=== PATIENT | female | born 1995 | race Caucasian/White ===

== ENCOUNTER 2016-12-28 07:59 | Emergency (ER) | payer OTHER ==
[2016-12-28] MEDS ORDERED: cefTRIAXone 250 MG VIAL IM STA (12:46)
[2016-12-28] MEDS ORDERED: cefTRIAXone 250 MG VIAL ONE (13:01)
[2016-12-28] MEDS ORDERED: LIDOCAINE-MPF 1% 5 ML VIAL ONE (13:01)
== END 2016-12-28 13:26 | disposition home or self-care (01) ==
DX: T83.32XA Displacement of intrauterine contraceptive device, initial encounter (principal); Y84.8 Other medical procedures as the cause of abnormal reaction of the patient, or of later complication, without mention of misadventure at the time of the procedure

== ENCOUNTER 2017-04-04 20:57 | Emergency (ER) | payer OTHER ==
[2017-04-04 21:11] VITALS: BP 104/72
[2017-04-04] MEDS ORDERED: IBUPROFEN 600 MG TABLET PO STA (22:04)
[2017-04-04] MEDS ORDERED: BACITRACIN OINT TOP STA (22:04)
[2017-04-04] MEDS ORDERED: IBUPROFEN 600 MG TABLET PO ONE (22:11)
[2017-04-04] MEDS ORDERED: BACITRACIN OINT TOP ONE (22:11)
--- NOTE | 2017-04-04 22:57 | ED Physician Documentation ---
PD HPI MAJOR BURN - Stated complaint Stated Complaint: L HAND INJURY - Chief complaint Chief Complaint: Burn - History obtained from History obtained from: Patient, Family - History of Present Illness Timing - onset: How many minutes ago (30) PD HPI MAJOR BURN MECHANISM: Hot liquid Burn(s) location: Right Upper Extremity Pain level max: 8 Pain level now: 6 Symptoms improve with: Rest Worsens with: Movement, Palpation - Additional information Additional information: Enriqueta is a 21 year old female with no significant past medical history who is presenting to the emergency department for a right hand burn. patient states that she was working with melted wax and she knocked it on her right hand. patient denies russell to any other part of her body. Review of Systems Constitutional: denies: Fever, Chills Eyes: denies: Decreased vision Ears: denies: Ear pain, Drainage/discharge GI: denies: Nausea, Vomiting Skin: reports: Rash, Lesions Musculoskeletal: reports: Extremity pain Neurologic: denies: Generalized weakness, Focal weakness, Numbness Immunocompromised: denies: Immunocompromised PD PAST MEDICAL HISTORY - Past Medical History Past Medical History: No - Past Surgical History Past Surgical History: No - Present Medications Home Medications: Ambulatory Orders Medication Instructions Recorded Confirmed No Known Home Medications [No 04/04/17 04/04/17 Known Home Medications] - Allergies Allergies/Adverse Reactions: Allergies Allergy/AdvReac Type Severity Reaction Status Date / Time No Known Drug Allergies Allergy Verified 04/04/17 21:07 - Social History Does the pt smoke?: No Smoking Status: Never smoker Does the pt drink ETOH?: Yes ETOH Use: Beer Does the pt have substance abuse?: No - Immunizations Immunizations are current?: Yes - POLST Patient has POLST: No PD ED PE NORMAL - Vitals Vital signs reviewed: Yes - General General: Alert and oriented X 3, Well developed/nourished - HEENT HEENT: Atraumatic - Neck Neck: Supple, no meningeal sign - Cardiac Cardiac: RRR, No murmur - Respiratory Respiratory: No respiratory distress - Neuro Neuro: Alert and oriented X 3, No motor deficit, No sensory deficit, Normal speech - Psych Psych: Normal mood, Normal affect PD ED PE EXPANDED - Extremities Extremities: Right hand (partial thickness burn to the dorsal portion of 5th through 2nd digits of the right hand, few blisters) PD BURN EXAM RULE OF 9S - TBSA Calculation Estimated TBSA: 0.5 Results - Vitals Vitals: Vital Signs - 24 hr 04/04/17 21:08 Temperature 36.6 C Heart Rate 83 Respiratory 16 Rate Blood Pressure 104/72 O2 Saturation 100 Oxygen O2 Source Room air PD MEDICAL DECISION MAKING - ED course Complexity details: reviewed results, re-evaluated patient, considered differential, d/w patient, d/w family, d/w telecommunications consultant ED course: Patient was seen and examined at bedside. Patient was up to date with tetanus. Patient was treated with motrin for pain. Burn center was contacted and the case was discussed with the burn fellow, Dr. Johnson. The recommended xeroform and bacitracin for the wound. follow up appointment was arranged. Wound was dressed and detailed discharge and return instructions were given to the patient. Patient required no further work up and was stable for discharge with outpatient follow up. Departure - Departure Disposition: 01 Home, Self Care Clinical Impression: Burn of hand Condition: Good Instructions: ED Burn D 2nd Follow-Up: Leonel Fontanez ARNP [Primary Care Provider[facility]Other[facility] Comments: Your symptoms today are being caused by a partial thickness burn. You will need to keep the russell moist with bacitracin. You should change the dressing daily after you shower. You should apply xeroform and bacitracin to the affected areas. You should look up the [facility] and their burn videos. You should do the hand exercises in burn video 306 6 times a day. You can take motrin or tylenol as needed for pain, but you should not apply ice to the wound. [facility] will be calling you to set up a follow up appointment. You should monitor for signs of infection. You may return to the emergency department at any time for new, worsening or uncontrollable symptoms. Forms: Activity restrictions
== END 2017-04-04 23:05 | disposition home or self-care (01) ==
LOC: ED 20:57
DX: T23.201A Burn of second degree of right hand, unspecified site, initial encounter (principal); X12.XXXA Contact with other hot fluids, initial encounter
CPT/HCPCS: 99282; 99284; A9270

== ENCOUNTER 2018-09-18 06:20 | Emergency (ER) | payer OTHER ==
[2018-09-18 06:55] LABS: BILIRUBIN,URINE NEGATIVE (NEGATIVE); GLUCOSE, URINE (UA) NEGATIVE (NEGATIVE); KETONES,URINE (UA) NEGATIVE (NEGATIVE); LEUKOCYTE ESTERASE, URINE NEGATIVE (NEGATIVE); NITRITE,URINE NEGATIVE (NEGATIVE); OCCULT BLOOD,URINE NEGATIVE (NEGATIVE); PH,URINE 5.5 PH (5.0-7.5); PROTEIN,URINE NEGATIVE (NEGATIVE); UROBILINOGEN,URINE 0.2 (NORMAL) E.U./dL (NORMAL)
[2018-09-18 07:01] LABS: CLARITY,URINE CLEAR (CLEAR); HCG UR QUAL NEGATIVE
[2018-09-18 07:04] LABS: BASOPHILS % (AUTO) 0.7 %; EOSINOPHILS # (AUTO) 0.3 10^3/uL (0.0-0.7); LYMPHOCYTES # (AUTO) 1.8 10^3/uL (1.5-3.5); LYMPHOCYTES % (AUTO) 38.2 %; MEAN CORPUSCULAR HEMOGLOBIN 28.5 pg (27.0-31.0); MEAN CORPUSCULAR HGB CONC 34.3 g/dL (32.0-36.0); MEAN CORPUSCULAR VOLUME 83.1 fL (81.0-99.0); MEAN PLATELET VOLUME 7.6 fL (7.9-10.8); MONOCYTES # (AUTO) 0.5 10^3/uL (0.0-1.0); NEUTROPHILS % (AUTO) 43.1 %; PLT - PLATELET COUNT 231 10^3/uL (130-450); RED BLOOD COUNT 4.55 10^6/uL (4.20-5.40); RED CELL DISTRIBUTION WIDTH 13.6 % (12.0-15.0); WHITE BLOOD COUNT 4.6 x10^3/uL (4.8-10.8)
[2018-09-18] MEDS ORDERED: SODIUM CHLORIDE 0.9% 1,000 ML IV ONE (07:16)
[2018-09-18] MEDS ORDERED: KETOROLAC 60 MG/2 ML VIAL IVP STA (07:16)
[2018-09-18] MEDS ORDERED: IOPAMIDOL-300 100 ML VIAL ONE (07:16)
[2018-09-18 07:23] LABS: CALCIUM 8.6 mg/dL (8.5-10.3); CREATININE 0.6 mg/dL (0.4-1.0)
[2018-09-18 07:24] LABS: ALBUMIN 3.7 g/dL (3.2-5.5); TOTAL PROTEIN 7.4 g/dL (6.7-8.2)
--- NOTE | 2018-09-18 07:59 | ED Physician Documentation ---
PD HPI GI BLEED - Stated complaint Stated Complaint: ABD PX - Chief complaint Chief Complaint: Abd Pain - Additional information Additional information: 22-year-old female presents the emergency department with sharp stabbing left lower abdominal pain which started yesterday. The patient's pain started after intercourse and has been consistent and she reports a sharp stabbing pain. The patient denies pelvic pain, vaginal discharge, dysuria or vaginal bleeding. The patient denies nausea or vomiting. Symptoms are described as moderate. No relieving factors. No history of similar. No other associated symptoms. Review of Systems Constitutional: denies: Fever Eyes: denies: Loss of vision Ears: denies: Ear pain Nose: denies: Rhinorrhea / runny nose Throat: denies: Dental pain / toothache Cardiac: denies: Chest pain / pressure GI: reports: Abdominal Pain. denies: Nausea, Vomiting : denies: Dysuria Skin: denies: Rash Musculoskeletal: denies: Neck pain Neurologic: denies: Generalized weakness Immunocompromised: denies: Chemotherapy PD PAST MEDICAL HISTORY - Past Medical History Past Medical History: Yes Psych: Depression, Anxiety - Past Surgical History Past Surgical History: No - Present Medications Home Medications: Ambulatory Orders Medication Instructions Recorded Confirmed Escitalopram Oxalate [Lexapro] 1 tab PO DAILY 09/18/18 09/18/18 HYDROcod/ACETAM 5/325 [[place] 5/325] 1 each PO Q6H PRN #10 tablet 09/18/18 Naproxen [Naprosyn] 500 mg PO BID PRN 30 Days #30 09/18/18 tablet Ondansetron Odt [Zofran] 4 mg TL Q6H PRN #10 tablet 09/18/18 - Allergies Allergies/Adverse Reactions: Allergies Allergy/AdvReac Type Severity Reaction Status Date / Time No Known Drug Allergies Allergy Verified 09/18/18 06:48 - Social History Does the pt smoke?: No Smoking Status: Never smoker Does the pt drink ETOH?: Yes Does the pt have substance abuse?: No - Immunizations Immunizations are current?: Yes - POLST Patient has POLST: No PD ED PE NORMAL - General General: Alert and oriented X 3, No acute distress - HEENT HEENT: Atraumatic, PERRL, EOMI, Ears normal - Neck Neck: Supple, no meningeal sign - Cardiac Cardiac: RRR, Strong equal pulses - Respiratory Respiratory: No respiratory distress, Clear bilaterally - Abdomen Abdomen: Soft, Non distended. No: Non tender (The patient is tender to palpation in her left lower abdomen, there is no rebound or peritoneal signs. The patient has no pain in her pelvis.) - Derm Derm: Normal color - Extremities Extremities: No deformity - Neuro Neuro: Alert and oriented X 3, Normal speech - Psych Psych: Normal affect Results - Vitals Vitals: Vital Signs - 24 hr 09/18/18 06:30 Temperature 36.4 C L Heart Rate 70 Respiratory 16 Rate Blood Pressure 111/78 O2 Saturation 97 Oxygen O2 Source Room air - Labs Labs: Laboratory Tests 09/18/18 09/18/18 09/18/18 06:40 06:55 06:55 WBC 4.6 L RBC 4.55 Hgb 13.0 Hct 37.9 MCV 83.1 MCH 28.5 MCHC 34.3 RDW 13.6 Plt Count 231 MPV 7.6 L Neut # (Auto) 2.0 Lymph # (Auto) 1.8 [place] # (Auto) 0.5 Eos # (Auto) 0.3 Baso # (Auto) 0.0 Absolute Nucleated RBC 0.00 Nucleated RBC % 0.1 Sodium 137 Potassium 3.7 Chloride 106 Carbon Dioxide 26 Anion Gap 5.0 L BUN 15 Creatinine 0.6 Estimated GFR (MDRD) 124 Glucose 110 H Calcium 8.6 Total Bilirubin 1.0 AST 19 ALT 14 Alkaline Phosphatase 52 Total Protein 7.4 Albumin 3.7 Globulin 3.7 Albumin/Globulin Ratio 1.0 Lipase 26 Urine Color YELLOW Urine Clarity CLEAR Urine pH 5.5 Ur Specific [place] >=1.030 H Urine Protein NEGATIVE Urine Glucose (UA) NEGATIVE Urine Ketones NEGATIVE Urine Occult Blood NEGATIVE Urine Nitrite NEGATIVE Urine Bilirubin NEGATIVE Urine Urobilinogen 0.2 (NORMAL) Ur Leukocyte Esterase NEGATIVE Ur Microscopic Review NOT INDICATED Urine Culture Comments NOT INDICATED Urine HCG, Qual NEGATIVE - Rads (name of study) US Pelvic Radiology: Final report received CT abdomen/pelvis Radiology: Final report received (IMPRESSION: Greater than expected stool burden, moderate. Otherwise normal study) PD MEDICAL DECISION MAKING - ED course ED course: On reevaluation the patient is resting comfortably and appears to be in no significant distress. The patient's workup today does not reveal any acute surgical etiology that would necessitate admission to the hospital or acute s urgical consultation. The patient appears appropriate for discharge and ongoing outpatient management. I recommended that she follow-up with [facility] for the hemorrhagic ovarian follicle seen on ultrasound. The patient understands and agrees. I discussed warning signs and recommended returning to the emergency department immediately for worsening or any concerns. Departure - Departure Disposition: 01 Home, Self Care Clinical Impression: Hemorrhagic cyst of right ovary Abdominal pain Qualifiers: Abdominal location: left lower quadrant Qualified Code(s): R10.32 - Left lower quadrant pain Condition: Good Instructions: Abdominal Pain, ED Cyst Ovarian, ED Abdominal Pain Unkn Cause Prescriptions: HYDROcod/ACETAM 5/325 [[place] 5/325] 1 each PO Q6H PRN #10 tablet PRN Reason: Pain Naproxen [Naprosyn] 500 mg PO BID PRN 30 Days #30 tablet PRN Reason: Pain Ondansetron Odt [Zofran] 4 mg TL Q6H PRN #10 tablet PRN Reason: Nausea / Vomiting Comments: [place] [facility] [place] and management of the findings seen on ultrasound today. Please return back to the emergency department immediately for any worsening or any concerns.
--- NOTE | 2018-09-18 08:00 | CT Report ---
Reason: LLQ abdominal pain Procedure Date: 09/18/2018 Accession Number: [id number] / [id number] Procedure: CT - Abdomen/Pelvis W/ CPT Code: FULL RESULT: EXAM: CT ABDOMEN AND PELVIS EXAM DATE: 09/18/2018 07:45 AM. CLINICAL HISTORY: LLQ abdominal pain. COMPARISONS: None. TECHNIQUE: Routine helical CT imaging was performed through the abdomen and pelvis. IV contrast: ISOVUE 300 100mL. Enteric contrast: No. Reconstructions: Coronal and sagittal. In accordance with CT protocol optimization, one or more of the following dose reduction techniques were utilized for this exam: automated exposure control, adjustment of mA and/or KV based on patient size, or use of iterative reconstructive technique. FINDINGS: Lung Bases: Normal. Liver: Normal. Gallbladder/Bile Ducts: Unremarkable. Spleen: Normal. Pancreas: Normal. Adrenal Glands: Normal. Kidneys: Normal. Peritoneal Cavity/Bowel: No ascites or pneumoperitoneum. No bowel obstruction. Moderate stool burden. No inflammatory change. The appendix is well visualized and normal. Pelvic Organs: Normal. The bladder and visualized pelvic organs are within normal limits. Vasculature: Normal. Bones: No significant abnormality. Other: None. IMPRESSION: Greater than expected stool burden, moderate. Otherwise normal study. RADIA
--- NOTE | 2018-09-18 10:05 | Ultrasound Report ---
Reason: R pelvic pain Procedure Date: 09/18/2018 Accession Number: [id number] / [id number] Procedure: US - Pelvic w/Transvag+Doppler Ltd CPT Code: FULL RESULT: EXAM: PELVIC ULTRASOUND EXAM DATE: 09/18/2018 09:42 AM. CLINICAL HISTORY: R pelvic pain. COMPARISON: PELVIS NON OB WITH TRANSVAGINAL DOPPLER LIMITED 12/28/2016 10:15 AM. TECHNIQUE: Realtime transabdominal pelvic scan performed to identify the uterus and adnexa and as an overview of other pelvic structures, followed by transvaginal scan to provide greater detail of the uterus and adnexa, with static image documentation. FINDINGS: Uterus: 7.1 x 2.6 x 4.2 cm, volume 40.5 cc. Anteverted position. Normal overall size and echotexture. Masses: None. Endometrium: 2 mm. Normal. Cervix: Unremarkable. Right Ovary: 2.5 x 2.1 x 2.5 cm, volume 9.6 cc. 1.8 x 1.1 x 1.3 cm hemorrhagic follicle is seen within the right ovary which appears otherwise normal in echotexture and blood flow. Left Ovary: 3.0 x 1.3 x 2.2 cm, volume 2 cc. Normal echotexture and blood flow. Free Fluid: None. Other: None. IMPRESSION: Hemorrhagic right ovarian follicle. RADIA
[2018-09-18 10:23] VITALS: BP 96/85
[2018-09-18] MEDS ORDERED: IOPAMIDOL-300 100 ML VIAL IVP ONE (15:53)
== END 2018-09-18 10:30 | disposition home or self-care (01) ==
LOC: ED 06:20
DX: N83.201 Unspecified ovarian cyst, right side (principal)
CPT/HCPCS: 36415; 74177; 76830; 76856; 80053; 81003; 81025; 83690; 85025; 87491; 87591; 93976; 96374; 99283; 99284; Q9967; 81001; 87086

== ENCOUNTER 2018-09-29 09:42 | Emergency (ER) | payer OTHER ==
[2018-09-29 10:58] LABS: BASOPHILS % (AUTO) 0.5 %; EOSINOPHILS # (AUTO) 0.3 10^3/uL (0.0-0.7); EOSINOPHILS % (AUTO) 5.3 %; HGB - HEMOGLOBIN 13.7 g/dL (12.0-16.0); LYMPHOCYTES % (AUTO) 39.9 %; MEAN CORPUSCULAR HEMOGLOBIN 28.4 pg (27.0-31.0); MEAN CORPUSCULAR HGB CONC 34.3 g/dL (32.0-36.0); MEAN CORPUSCULAR VOLUME 82.7 fL (81.0-99.0); MEAN PLATELET VOLUME 7.7 fL (7.9-10.8); MONOCYTES # (AUTO) 0.6 10^3/uL (0.0-1.0); MONOCYTES % (AUTO) 11.6 %; NEUTROPHILS # (AUTO) 2.2 10^3/uL (1.5-6.6); NEUTROPHILS % (AUTO) 42.7 %; PLT - PLATELET COUNT 230 10^3/uL (130-450); RED BLOOD COUNT 4.84 10^6/uL (4.20-5.40); RED CELL DISTRIBUTION WIDTH 13.8 % (12.0-15.0)
[2018-09-29 11:05] LABS: BILIRUBIN,URINE NEGATIVE (NEGATIVE); GLUCOSE, URINE (UA) NEGATIVE (NEGATIVE); KETONES,URINE (UA) NEGATIVE (NEGATIVE); LEUKOCYTE ESTERASE, URINE NEGATIVE (NEGATIVE); NITRITE,URINE NEGATIVE (NEGATIVE); OCCULT BLOOD,URINE NEGATIVE (NEGATIVE); PROTEIN,URINE NEGATIVE (NEGATIVE); UROBILINOGEN,URINE 0.2 (NORMAL) E.U./dL (NORMAL)
[2018-09-29 11:08] LABS: CLARITY,URINE CLEAR (CLEAR)
[2018-09-29 11:13] LABS: ALBUMIN 4.5 g/dL (3.2-5.5); ALBUMIN/GLOBULIN RATIO 1.2 (1.0-2.2); BILIRUBIN,TOTAL 1.1 mg/dL (0.2-1.0); CALCIUM 8.6 mg/dL (8.5-10.3); CREATININE 0.7 mg/dL (0.4-1.0); HCG UR QUAL NEGATIVE; TOTAL PROTEIN 8.2 g/dL (6.7-8.2)
[2018-09-29] MEDS ORDERED: KETOROLAC 60 MG/2 ML VIAL IVP STA (13:30)
--- NOTE | 2018-09-29 13:35 | ED Physician Documentation ---
PD HPI FEMALE - Stated complaint Stated Complaint: ABD PX/SWELLING - Chief complaint Chief Complaint: Abd Pain - History obtained from History obtained from: Patient - History of Present Illness Timing - onset: Today Timing - duration: Hours Timing - details: Gradual onset, Still present Associated symptoms: Abdominal pain, Pelvic pain. No: Dysuria, Urinary frequency Contributing factors: No: Similar symptoms before: Diagnosis (hemorrhagic ovarian cyst) Recently seen: Emergency Dept - Additional information Additional information: 22-year-old female who is recently been diagnosed with a hemorrhagic ovarian cyst has developed symptoms again this morning now the symptoms are in the pelvis and they are severe with pain that is undulating and spiking. The patient states that she had enough pain this morning that she nearly vomited and she states that she has some improvement in her pain if she lays very still if she is up and moving around much the pain heightens. Review of Systems Constitutional: denies: Fever Eyes: denies: Decreased vision Ears: denies: Ear pain Nose: denies: Congestion Throat: denies: Sore throat Cardiac: denies: Chest pain / pressure, Palpitations Respiratory: denies: Dyspnea, Cough GI: reports: Abdominal Pain, Nausea. denies: Vomiting, Constipation, Diarrhea : reports: Other (svere pelvic cramping). denies: Dysuria, Frequency Skin: denies: Rash Musculoskeletal: denies: Neck pain, Back pain Neurologic: denies: Generalized weakness, Focal weakness, Numbness PD PAST MEDICAL HISTORY - Past Medical History Past Medical History: Yes Psych: Depression, Anxiety - Past Surgical History Past Surgical History: No - Present Medications Home Medications: Ambulatory Orders Medication Instructions Recorded Confirmed Escitalopram Oxalate [Lexapro] 1 tab PO DAILY 09/18/18 09/18/18 HYDROcod/ACETAM 5/325 [[place] 5/325] 1 each PO Q6H PRN #10 tablet 09/18/18 Naproxen [Naprosyn] 500 mg PO BID PRN 30 Days #30 09/18/18 tablet Ondansetron Odt [Zofran] 4 mg TL Q6H PRN #10 tablet 09/18/18 - Allergies Allergies/Adverse Reactions: Allergies Allergy/AdvReac Type Severity Reaction Status Date / Time No Known Drug Allergies Allergy Verified 09/29/18 10:15 - Social History Does the pt smoke?: No Smoking Status: Never smoker Does the pt drink ETOH?: Yes Does the pt have substance abuse?: No - Immunizations Immunizations are current?: Yes - POLST Patient has POLST: No PD ED PE NORMAL - Vitals Vital signs reviewed: Yes (normal ) - General General: Alert and oriented X 3, Well developed/nourished, Other (appears to be in pain with warehouse shipping supervisor tone and flat affect. ) - HEENT HEENT: Atraumatic, PERRL, EOMI - Neck Neck: Supple, no meningeal sign, No bony TTP - Cardiac Cardiac: RRR, No murmur - Respiratory Respiratory: No respiratory distress, Clear bilaterally - Abdomen Abdomen: Soft, Other (suprapubic tenderness bilaterally and no tenderness to the LUQ, epigastric or RUQ) - Back Back: No CVA TTP, No spinal TTP - Derm Derm: Normal color, Warm and dry, No rash - Extremities Extremities: No deformity, No edema - Neuro Neuro: Alert and oriented X 3, certified lactation counselor 2-12 intact, No motor deficit, No sensory deficit, Normal speech Eye Opening: To Voice Motor: Obeys Commands Verbal: Oriented GCS Score: 14 - Psych Psych: Normal mood Results - Vitals Vitals: Vital Signs - 24 hr 09/29/18 09/29/18 10:07 15:53 Temperature 36.3 C L Heart Rate 70 89 Respiratory 20 18 Rate Blood Pressure 112/69 109/76 O2 Saturation 100 99 Oxygen O2 Source Room air - Labs Labs: Laboratory Tests 09/29/18 09/29/18 09/29/18 10:47 10:47 10:47 WBC 5.0 RBC 4.84 Hgb 13.7 Hct 40.0 MCV 82.7 MCH 28.4 MCHC 34.3 RDW 13.8 Plt Count 230 MPV 7.7 L Neut # (Auto) 2.2 Lymph # (Auto) 2.0 [place] # (Auto) 0.6 Eos # (Auto) 0.3 Baso # (Auto) 0.0 Absolute Nucleated RBC 0.00 Nucleated RBC % 0.1 Sodium 136 Potassium 3.3 L Chloride 101 Carbon Dioxide 26 Anion Gap 9.0 BUN 15 Creatinine 0.7 Estimated GFR (MDRD) 104 Glucose 91 Calcium 8.6 Total Bilirubin 1.1 H AST 22 ALT 18 Alkaline Phosphatase 60 Total Protein 8.2 Albumin 4.5 Globulin 3.7 Albumin/Globulin Ratio 1.2 Lipase 30 Urine Color DARK YELLOW Urine Clarity CLEAR Urine pH 6.0 Ur Specific [place] >=1.030 H Urine Protein NEGATIVE Urine Glucose (UA) NEGATIVE Urine Ketones NEGATIVE Urine Occult Blood NEGATIVE Urine Nitrite NEGATIVE Urine Bilirubin NEGATIVE Urine Urobilinogen 0.2 (NORMAL) Ur Leukocyte Esterase NEGATIVE Ur Microscopic Review NOT INDICATED Urine Culture Comments NOT INDICATED Urine HCG, Qual NEGATIVE - Rads (name of study) pelvic ultrasound Radiology: Prelim report reviewed (Impression: Normal pelvic ultrasound.), EMP read indepedently, See rad report PD MEDICAL DECISION MAKING - ED course Complexity details: reviewed old records, reviewed results, re-evaluated patient, considered differential, d/w patient ED course: 22 y/o female with pelvic pain and prior ovarian cyst has normal Departure - Departure Disposition: 01 Home, Self Care Clinical Impression: Pelvic pain Instructions: ED Pelvic Pain [facility] Follow-Up: Leonel Fontanez ARNP [Primary Care Provider] -
--- NOTE | 2018-09-29 16:40 | Ultrasound Report ---
Reason: pelvic pain Procedure Date: 09/29/2018 Accession Number: [id number] / [id number] Procedure: US - Pelvic w/Doppler Limited CPT Code: FULL RESULT: EXAM: PELVIC ULTRASOUND EXAM DATE: 09/29/2018 03:50 PM. CLINICAL HISTORY: Pelvic pain. COMPARISON: PEL NON OB W/TV DOP LTD 09/18/2018 9:09 AM. TECHNIQUE: Realtime transabdominal pelvic scan performed to identify the uterus and adnexa and as an overview of other pelvic structures, with static image documentation. FINDINGS: Uterus: 8.2 x 3.3 x 4.2 cm, volume 59.4 cc. Retroverted position. Normal overall size and echotexture. Masses: None. Endometrium: 10 mm. Normal. Cervix: Unremarkable. Right Ovary: 4.1 x 2.4 x 3.9 cm, volume 20.1 cc. Normal echotexture and blood flow. The dominant follicle measures 2.4 x 1.7 x 2.4 cm. Left Ovary: 4.0 x 1.8 x 2.9 cm, volume 11.1 cc. Normal echotexture and blood flow. Free Fluid: None. Other: None. IMPRESSION: Normal pelvic ultrasound. RADIA
[2018-09-29 17:41] VITALS: BP 120/82
== END 2018-09-29 17:42 | disposition home or self-care (01) ==
LOC: ED 09:42
DX: R10.2 Pelvic and perineal pain (principal)
CPT/HCPCS: 36415; 76856; 80053; 81001; 81003; 81025; 83690; 85025; 87086; 93976; 96374; 99283

== ENCOUNTER 2019-01-03 10:10 | Emergency (ER) | payer OTHER ==
[2019-01-03 10:18] VITALS: BP 117/73
[2019-01-03 10:31] LABS: GLUCOSE, URINE (UA) NEGATIVE (NEGATIVE); KETONES,URINE (UA) NEGATIVE (NEGATIVE); LEUKOCYTE ESTERASE, URINE MODERATE (NEGATIVE); NITRITE,URINE POSITIVE (NEGATIVE); OCCULT BLOOD,URINE LARGE (NEGATIVE); PROTEIN,URINE 100 mg/dL (NEGATIVE); UROBILINOGEN,URINE 0.2 (NORMAL) E.U./dL (NORMAL)
[2019-01-03 10:40] LABS: BACTERIA,URINE Few /HPF (None Seen); BILIRUBIN,URINE NEGATIVE (NEGATIVE); CLARITY,URINE CLOUDY (CLEAR); HCG UR QUAL NEGATIVE; ICTOTEST,URINE NEGATIVE; RBC,URINE TNTC /HPF (0-5); SQUAMOUS EPITHELIAL CELL,UR RARE Squamous (<= Few)
--- NOTE | 2019-01-03 11:25 | ED Physician Documentation ---
PD HPI FEMALE - Stated complaint Stated Complaint: FEMALE - Chief complaint Chief Complaint: UTI - History obtained from History obtained from: Patient, Family - History of Present Illness Timing - onset: Today Timing - duration: Hours Timing - details: Gradual onset, Still present Associated symptoms: Back pain, Dysuria, Urinary frequency Contributing factors: No: Similar symptoms before: Diagnosis (UTI) Recently seen: Not recently seen - Additional information Additional information: 23-year-old female has noticed urinary urgency and frequency and she has noticed blood in her urine with a small clot which provided her sample today. She has had urinary tract infection once previously. She denies any flank pain she does have some low back pain she has attributed to moving some furniture and she is not nauseous or febrile. Review of Systems Constitutional: denies: Fever Eyes: denies: Decreased vision Ears: denies: Ear pain Nose: denies: Congestion Throat: denies: Sore throat Cardiac: denies: Chest pain / pressure, Palpitations Respiratory: denies: Dyspnea, Cough GI: denies: Abdominal Pain, Nausea, Vomiting : reports: Dysuria, Frequency Skin: denies: Rash Musculoskeletal: reports: Back pain. denies: Neck pain, Extremity pain Neurologic: denies: Generalized weakness, Focal weakness, Numbness PD PAST MEDICAL HISTORY - Past Medical History Past Medical History: No Psych: Depression, Anxiety - Past Surgical History Past Surgical History: No - Present Medications Home Medications: Ambulatory Orders Medication Instructions Recorded Confirmed Escitalopram Oxalate [Lexapro] 1 tab PO DAILY 09/18/18 01/03/19 Phenazopyridine HCl [Pyridium] 200 mg PO TID PRN #6 tablet 01/03/19 Sulfamethoxazole/Trimethoprim 1 each PO BID #10 tablet 01/03/19 [Sulfamethoxazole-Tmp Ds Tablet] - Allergies Allergies/Adverse Reactions: Allergies Allergy/AdvReac Type Severity Reaction Status Date / Time No Known Drug Allergies Allergy Verified 01/03/19 10:18 - Social History Does the pt smoke?: No Smoking Status: Never smoker Does the pt drink ETOH?: Yes Does the pt have substance abuse?: No - Immunizations Immunizations are current?: Yes - POLST Patient has POLST: No PD ED PE NORMAL - Vitals Vital signs reviewed: Yes (normal ) - General General: Alert and oriented X 3, No acute distress, Well developed/nourished - HEENT HEENT: Atraumatic, PERRL, EOMI - Respiratory Respiratory: No respiratory distress - Back Back: No CVA TTP, No spinal TTP - Derm Derm: Normal color, Warm and dry, No rash - Extremities Extremities: No deformity, No edema - Neuro Neuro: Alert and oriented X 3, 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, No motor deficit, No sensory deficit, Normal speech Eye Opening: Spontaneous Motor: Obeys Commands Verbal: Oriented GCS Score: 15 - Psych Psych: Normal mood, Normal affect Results - Vitals Vitals: Vital Signs - 24 hr 01/03/19 10:16 Temperature 36.7 C Heart Rate 79 Respiratory 18 Rate Blood Pressure 117/73 O2 Saturation 100 Oxygen O2 Source Room air - Labs Labs: Laboratory Tests 01/03/19 10:21 Urine Color BROWN Urine Clarity CLOUDY Urine pH 6.0 Ur Specific [place] >=1.030 H Urine Protein 100 H Urine Glucose (UA) NEGATIVE Urine Ketones NEGATIVE Urine Occult Blood LARGE H Urine Nitrite POSITIVE H Urine Bilirubin NEGATIVE Urine Urobilinogen 0.2 (NORMAL) Ur Leukocyte Esterase MODERATE H Urine RBC TNTC H Urine WBC >25 H Ur Squamous Epith Cells RARE Squamous Urine Bacteria Few Ur Microscopic Review INDICATED Urine Culture Comments INDICATED Urine HCG, Qual NEGATIVE PD MEDICAL DECISION MAKING - ED course Complexity details: considered differential, d/w patient, d/w family ED course: 23-year-old female with hemorrhagic cystitis has no flank pain on examination and she is afebrile. We will treat her with Septra and extra fluids. Departure - Departure Disposition: 01 Home, Self Care Clinical Impression: Urinary tract infection Qualifiers: Urinary tract infection type: acute cystitis Hematuria presence: with hematuria Qualified Code(s): N30.01 - Acute cystitis with hematuria Condition: Stable Instructions: ED UTI Cystitis Female Follow-Up: Leonel Fontanez ARNP [Primary Care Provider] - Prescriptions: Phenazopyridine HCl [Pyridium] 200 mg PO TID PRN #6 tablet PRN Reason: dysuria Sulfamethoxazole/Trimethoprim [Sulfamethoxazole-Tmp Ds Tablet] 1 each PO BID #10 tablet
== END 2019-01-03 11:29 | disposition home or self-care (01) ==
LOC: ED 10:10
DX: N30.01 Acute cystitis with hematuria (principal)
CPT/HCPCS: 81001; 81003; 81025; 87086; 99283

== ENCOUNTER 2019-03-09 14:36 | Emergency (ER) | payer OTHER ==
[2019-03-09 15:17] LABS: BASOPHILS % (AUTO) 0.4 %; EOSINOPHILS # (AUTO) 0.3 10^3/uL (0.0-0.7); EOSINOPHILS % (AUTO) 2.3 %; HGB - HEMOGLOBIN 13.9 g/dL (12.0-16.0); LYMPHOCYTES # (AUTO) 2.1 10^3/uL (1.5-3.5); LYMPHOCYTES % (AUTO) 18.9 %; MEAN CORPUSCULAR HGB CONC 33.9 g/dL (32.0-36.0); MEAN CORPUSCULAR VOLUME 85.3 fL (81.0-99.0); MEAN PLATELET VOLUME 7.3 fL (7.9-10.8); MONOCYTES # (AUTO) 0.8 10^3/uL (0.0-1.0); MONOCYTES % (AUTO) 7.5 %; NEUTROPHILS % (AUTO) 70.9 %; PLT - PLATELET COUNT 325 10^3/uL (130-450); RED BLOOD COUNT 4.79 10^6/uL (4.20-5.40); WHITE BLOOD COUNT 11.3 x10^3/uL (4.8-10.8)
[2019-03-09 15:22] LABS: BILIRUBIN,URINE NEGATIVE (NEGATIVE); GLUCOSE, URINE (UA) NEGATIVE (NEGATIVE); KETONES,URINE (UA) NEGATIVE (NEGATIVE); LEUKOCYTE ESTERASE, URINE NEGATIVE (NEGATIVE); NITRITE,URINE NEGATIVE (NEGATIVE); OCCULT BLOOD,URINE TRACE-INTA (NEGATIVE); PH,URINE 5.5 PH (5.0-7.5); PROTEIN,URINE NEGATIVE (NEGATIVE); UROBILINOGEN,URINE 0.2 (NORMAL) E.U./dL (NORMAL)
[2019-03-09 15:26] LABS: CLARITY,URINE CLEAR (CLEAR); HCG UR QUAL NEGATIVE
[2019-03-09 15:37] LABS: ALBUMIN 4.2 g/dL (3.2-5.5); ALBUMIN/GLOBULIN RATIO 1.1 (1.0-2.2); BILIRUBIN,TOTAL 0.7 mg/dL (0.2-1.0); CREATININE 0.7 mg/dL (0.4-1.0)
[2019-03-09] MEDS ORDERED: HYDROcod/ACETAM 5/325 MG TABLET PO STA (16:16)
--- NOTE | 2019-03-09 16:20 | ED Physician Documentation ---
PD HPI ABD PAIN - Stated complaint Stated Complaint: ABD/LWR BACK PAIN - Chief complaint Chief Complaint: Abd Pain - History obtained from History obtained from: Patient, Family () - History of Present Illness Timing - onset: Today (She is been having ongoing very low back pain for a while but was worse today while running and then she felt pelvic pressure like she was going to deliver her baby although she does not think she is although she is sexually active. Pain was not responsive to Tylenol or Motrin. She denies any vaginal bleeding. It is not associated with nausea but she did have urinary frequency recently. There is no associated fever. She is a G2, P1 with history of one miscarriage and one healthy baby. Pain is a little worse on the left than the right. She denies any vaginal masses.) Review of Systems Constitutional: denies: Fever, Chills Cardiac: denies: Chest pain / pressure, Palpitations Respiratory: denies: Dyspnea, Cough GI: reports: Abdominal Pain. denies: Nausea, Vomiting, Constipation, Diarrhea : reports: Frequency. denies: Dysuria PD PAST MEDICAL HISTORY - Past Medical History Psych: Depression, Anxiety - Past Surgical History Past Surgical History: No - Present Medications Home Medications: Ambulatory Orders Medication Instructions Recorded Confirmed Hydrocodone/Acetaminophen 1 - 2 each PO Q6H PRN #14 tablet 03/09/19 [Hydrocodon-Acetaminophen 5-325] - Allergies Allergies/Adverse Reactions: Allergies Allergy/AdvReac Type Severity Reaction Status Date / Time No Known Drug Allergies Allergy Verified 03/09/19 14:48 - Social History Does the pt smoke?: No Smoking Status: Never smoker Does the pt drink ETOH?: Yes Does the pt have substance abuse?: No - Immunizations Immunizations are current?: Yes - POLST Patient has POLST: No PD ED PE NORMAL - Vitals Vital signs reviewed: Yes - General General: Alert and oriented X 3, No acute distress - HEENT HEENT: Pharynx benign - Neck Neck: Supple, no meningeal sign, No bony TTP - Cardiac Cardiac: RRR, No murmur - Respiratory Respiratory: No respiratory distress, Clear bilaterally - Abdomen Abdomen: Normal bowel sounds, Soft, Non tender - Derm Derm: Normal color, Warm and dry - Extremities Extremities: No edema, No calf tenderness / cord - Neuro Neuro: Alert and oriented X 3, Normal speech - Psych Psych: Normal mood, Normal affect Results - Vitals Vitals: Vital Signs - 24 hr 03/09/19 03/09/19 14:45 18:01 Temperature 36.5 C Heart Rate 93 68 Respiratory 14 18 Rate Blood Pressure 116/78 122/68 O2 Saturation 100 97 Oxygen O2 Source Room air - Labs Labs: Laboratory Tests 03/09/19 03/09/19 03/09/19 14:56 14:56 15:13 WBC 11.3 H RBC 4.79 Hgb 13.9 Hct 40.9 MCV 85.3 MCH 29.0 MCHC 33.9 RDW 13.0 Plt Count 325 MPV 7.3 L Neut # (Auto) 8.0 H Lymph # (Auto) 2.1 [place] # (Auto) 0.8 Eos # (Auto) 0.3 Baso # (Auto) 0.0 Absolute Nucleated RBC 0.01 Nucleated RBC % 0.0 Sodium Potassium Chloride Carbon Dioxide Anion Gap BUN Creatinine Estimated GFR (MDRD) Glucose Calcium Total Bilirubin AST ALT Alkaline Phosphatase Total Protein Albumin Globulin Albumin/Globulin Ratio Lipase Urine Color YELLOW Urine Clarity CLEAR Urine pH 5.5 Ur Specific [place] >=1.030 H >=1.030 H Urine Protein NEGATIVE Urine Glucose (UA) NEGATIVE Urine Ketones NEGATIVE Urine Occult Blood TRACE-INTA Urine Nitrite NEGATIVE Urine Bilirubin NEGATIVE Urine Urobilinogen 0.2 (NORMAL) Ur Leukocyte Esterase NEGATIVE Ur Microscopic Review NOT INDICATED Urine Culture Comments NOT INDICATED Urine HCG, Qual NEGATIVE 03/09/19 15:13 WBC RBC Hgb Hct MCV MCH MCHC RDW Plt Count MPV Neut # (Auto) Lymph # (Auto) [place] # (Auto) Eos # (Auto) Baso # (Auto) Absolute Nucleated RBC Nucleated RBC % Sodium 136 Potassium 3.9 Chloride 101 Carbon Dioxide 27 Anion Gap 8.0 BUN 16 Creatinine 0.7 Estimated GFR (MDRD) 103 Glucose 98 Calcium 9.0 Total Bilirubin 0.7 AST 24 ALT 23 Alkaline Phosphatase 65 Total Protein 8.0 Albumin 4.2 Globulin 3.8 Albumin/Globulin Ratio 1.1 Lipase 24 Urine Color Urine Clarity Urine pH Ur Specific [place] Urine Protein Urine Glucose (UA) Urine Ketones Urine Occult Blood Urine Nitrite Urine Bilirubin Urine Urobilinogen Ur Leukocyte Esterase Ur Microscopic Review Urine Culture Comments Urine HCG, Qual - Rads (name of study) Pelvic sono Radiology: EMP read contemporaneously (3.5 cm R ov cyst) PD MEDICAL DECISION MAKING - ED course ED course: 23-year-old woman with acute lower abdominal pain, found to have an ovarian cyst on work-up. She felt much better after Vicodin. There is no evidence of infection or torsion. Departure - Departure Disposition: 01 Home, Self Care Clinical Impression: Cyst of ovary Condition: Good Record reviewed to determine appropriate education?: Yes Instructions: ED Cyst Ovarian Prescriptions: Hydrocodone/Acetaminophen [Hydrocodon-Acetaminophen 5-325] 1 - 2 each PO Q6H PRN #14 tablet PRN Reason: pain Comments: As discussed he will need a repeat ultrasound in about 4 weeks to make sure the cyst has gone away. [place] Return if worse or if new symptoms develop. Forms: Activity restrictions Discharge Date/Time: 03/09/19 18:02
--- NOTE | 2019-03-09 17:33 | Ultrasound Report ---
Reason: pelvic pain, L Procedure Date: 03/09/2019 Accession Number: [id number] / [id number] Procedure: US - Pelvic w/Transvag+Doppler Comp CPT Code: FULL RESULT: EXAM: PELVIC ULTRASOUND. EXAM DATE: 03/09/2019 05:07 PM. CLINICAL HISTORY: Pelvic pain, left. COMPARISON: PEL NON OB W/TV DOP LTD 09/18/2018 9:09 AM. TECHNIQUE: Realtime transabdominal pelvic scan performed to identify the uterus and adnexa and as an overview of other pelvic structures, followed by transvaginal scan to provide greater detail of the uterus and adnexa, with static image documentation. FINDINGS: Uterus: 6.9 x 2.8 x 4.2 cm, anteverted position. Normal overall size and echotexture. Masses: None. Endometrium: 11 mm. No hypervascular nodule. Cervix: Trace endocervical fluid. Right Ovary: 3.5 x 3.9 x 5.3 cm, volume 38.8 cc. There is a dominant 3.5 cm cyst containing a thin avascular central septation. PSV 10.5 cm/s, RI 0.66. Left Ovary: 2.9 x 1.9 x 2.8 cm, volume 8.6 cc. Normal echotexture and blood flow. PSV 11.2 cm/s, RI 0.53. Free Fluid: Small amount of free fluid considered physiologic. Other: None. IMPRESSION: 1. Slightly complex but otherwise benign appearing 3.5 cm right ovarian cyst. 2. Otherwise unremarkable. RADIA
[2019-03-09 18:08] VITALS: BP 122/68
== END 2019-03-09 18:02 | disposition home or self-care (01) ==
LOC: ED 14:36
DX: N83.201 Unspecified ovarian cyst, right side (principal)
CPT/HCPCS: 36415; 76830; 76856; 80053; 81003; 81025; 83690; 85025; 93975; 99283; A9270; 81001; 87086